=== PATIENT | male | born 1935 | race Caucasian/White ===

== ENCOUNTER 2018-09-18 07:42 | Emergency (ER) | payer OTHER ==
[~2018-09-18] VITALS: Ht 160 cm; Wt 59.0 kg
[2018-09-18] MEDS ORDERED: NAMENDA XR1 EACH (07:57)
[2018-09-18] MEDS ORDERED: ASPIRIN81 MG (07:57)
[2018-09-18] MEDS ORDERED: SYNTHROID75 MCG (07:58)
[2018-09-18] MEDS ORDERED: TAMSULOSIN HCL0.4 MG (07:58)
[2018-09-18] MEDS ORDERED: DONEPEZIL HCL10 MG (07:58)
== END 2018-09-18 13:29 | disposition home or self-care (01) ==
LOC: ER 07:42
DX: S01.02XA Laceration with foreign body of scalp, initial encounter (principal); W18.09XA Striking against other object with subsequent fall, initial encounter; Y93.89 Activity, other specified; Y92.89 Other specified places as the place of occurrence of the external cause; Y99.8 Other external cause status

== ENCOUNTER → 2020-09-14 | Emergency (ER) | payer OTHER ==
[~2020-09-14] VITALS: Ht 160 cm; Wt 54.4 kg
[~2020-09-14] MED LIST: ASPIRIN81 MG; DONEPEZIL HCL10 MG; EXELON1 EAC1; NAMENDA XR1 EACH; SYNTHROID75 MCG; SYNTHROID88 MCG; TAMSULOSIN HCL0.4 MG
== END | disposition left against medical advice (07) ==
LOC: ER 15:14
DX: S01.02XA Laceration with foreign body of scalp, initial encounter (principal); R51.9 Headache, unspecified; I48.91 Unspecified atrial fibrillation; F02.80 Dementia in other diseases classified elsewhere, unspecified severity, without behavioral disturbance, psychotic disturbance, mood disturbance, and anxiety; W01.198A Fall on same level from slipping, tripping and stumbling with subsequent striking against other object, initial encounter; Y93.89 Activity, other specified; Y92.89 Other specified places as the place of occurrence of the external cause; Y99.8 Other external cause status

== ENCOUNTER 2021-10-10 14:55 | Emergency (ER) | payer OTHER ==
[~2021-10-10] VITALS: Ht 160 cm; Wt 59.0 kg
== END 2021-10-10 18:07 | disposition home or self-care (01) ==
LOC: ER 14:55
DX: S01.21XA Laceration without foreign body of nose, initial encounter (principal); S02.2XXA Fracture of nasal bones, initial encounter for closed fracture; W05.0XXA Fall from non-moving wheelchair, initial encounter; Y93.89 Activity, other specified; Y92.488 Other paved roadways as the place of occurrence of the external cause; Y99.9 Unspecified external cause status; I10 Essential (primary) hypertension